=== PATIENT | female | born 1950 | race Caucasian/White ===

== ENCOUNTER → 2017-10-31 14:28 | Outpatient (CLI) | payer MEDICARE, SELFPAY ==
[2017-10-31 15:43] LABS: HEMOLYSIS < 15 (0-50)
[2017-10-31 15:44] LABS: BUN Creatinine Ratio 18.8 (6-22); Blood Urea Nitrogen 15 mg/dL (7-17); Calcium 9.9 mg/dL (8.4-10.2); Carbon Dioxide 32 mmol/L (22-32); Chloride 99 mmol/L (98-107); Estimated Glomerular Filt Rate > 60.0 mL/min (>60); Glucose 111 mg/dL (80-110); Potassium 4.9 mmol/L (3.4-5.1); Sodium 138 mmol/L (137-145)
== END ==
PROVIDERS: PCP Physician Assistant; Visit Provider Physician Assistant
DX: E03.9 Hypothyroidism, unspecified (principal); J30.9 Allergic rhinitis, unspecified; G47.00 Insomnia, unspecified
CPT/HCPCS: 36415; 80048; 84443

== ENCOUNTER → 2018-05-13 11:00 | Outpatient (CLI) | payer MEDICARE, SELFPAY ==
--- NOTE | 2018-05-13 | DI.MG.S_ITS ---
BILATERAL DIGITAL SCREENING MAMMOGRAM 3D/2D WITH CAD: 05/13/2018 CLINICAL: Routine screening. Comparison is made to exams dated: 05/12/2017 mammogram, 04/05/2016 mammogram, and 03/20/2015 mammogram - [facility]. There are scattered fibroglandular elements in both breasts. Current study was also evaluated with a Computer Aided Detection (CAD) system. No significant masses, calcifications, or other findings are seen in either breast. There has been no significant interval change. IMPRESSION: NEGATIVE There is no mammographic evidence of malignancy. A 1 year screening mammogram is recommended. This exam was interpreted at Station ID: [id number]. NOTE: For mammograms, a report in lay terms will be sent to the patient. Approximately 15% of breast malignancies will not be visualized mammographically. In the management of a palpable breast mass, a negative mammogram must not discourage biopsy of a clinically suspicious lesion. Electronically Signed By: Janny bertrand/holly:05/13/2018 15:52:07 letter sent: Normal Exam ACR BI-RADS Category 1: Negative 3341F
== END ==
PROVIDERS: PCP Physician Assistant; Visit Provider Physician Assistant
DX: Z12.31 Encounter for screening mammogram for malignant neoplasm of breast (principal)
CPT/HCPCS: 77063; 77067

== ENCOUNTER → 2018-05-19 10:26 | Outpatient (CLI) | payer MEDICARE, SELFPAY ==
[2018-05-19 10:48] LABS: Add Manual Diff / Slide Review NO; Basophils Absolute Auto 0 /uL (0-100); Basophils Percent Auto 0.8 % (0-2); Eosinophils Absolute Auto 100 /uL (0-450); Eosinophils Percent Auto 3.4 % (2-4); Hematocrit 44.5 % (36-46); Lymphocytes Absolute Auto 1600 /uL (1100-4500); Lymphocytes Percent Auto 37.3 % (25-40); Mean Corpuscular HGB Conc 33.8 % (30-36); Mean Corpuscular Hemoglobin 34.2 PG (26-34); Monocytes Absolute Auto 300 /uL (0-900); Neutrophils Absolute Auto 2100 /uL (1500-7000); Neutrophils Percent Auto 50.5 % (50-75); Platelet Count 287 X10^3/uL (150-400); Red Cell Distribution Width 13.9 % (11.6-14.8); White Blood Cell Count 4.3 X10^3/uL (4.5-11.0)
[2018-05-19 11:00] LABS: Alanine Aminotransferase 31 IU/L (9-52); Albumin 4.5 g/dL (3.5-5.0); Albumin Globulin Ratio 1.5 (1.0-2.8); Alkaline Phosphatase 78 U/L (38-126); Aspartate Aminotransferase 22 IU/L (14-36); BUN Creatinine Ratio 28.6 (6-22); Bilirubin Total 0.8 mg/dL (0.2-1.3); Blood Urea Nitrogen 20 mg/dL (7-17); Calcium 9.3 mg/dL (8.4-10.2); Carbon Dioxide 27 mmol/L (22-32); Chloride 103 mmol/L (98-107); Cholesterol 232 mg/dL (140-199); Estimated Glomerular Filt Rate > 60.0 mL/min (>60); Glucose 100 mg/dL (80-110); HEMOLYSIS < 15 (0-50); Potassium 4.7 mmol/L (3.4-5.1); Sodium 137 mmol/L (137-145); Total Protein 7.5 g/dL (6.3-8.2); Triglycerides 72 mg/dL (35-150)
[2018-05-19 11:08] LABS: HDL Cholesterol 151 mg/dL (40-60); LDL Cholesterol Calculated 67 mg/dL (<100)
[2018-05-19 11:36] LABS: Thyroid Stimulating Hormone 1.89 uIU/mL (0.47-4.68)
== END ==
PROVIDERS: PCP Physician Assistant; Visit Provider Physician Assistant
DX: E03.9 Hypothyroidism, unspecified (principal); D72.819 Decreased white blood cell count, unspecified; G47.00 Insomnia, unspecified; E78.2 Mixed hyperlipidemia
CPT/HCPCS: 36415; 80053; 80061; 84443; 85025

== ENCOUNTER → 2018-06-16 09:43 | Outpatient (CLI) | payer MEDICARE, SELFPAY ==
--- NOTE | 2018-06-16 09:00 | DI.ECHO.S_ITS ---
[place] [facility]---------+ [facility] +---------+ : : [address] : : : : [id number] : : : : Phone: [phone]+ Echocardiogram Report + + :Name: MAT BOSTON V Study Date: 06/16/2018 Height: 66 in : :[facility] Exam Location: IS Weight: 223 lb : : Gender: Female BSA: 2.1 m2 : :: 1950 Age: 67 yrs BP: 135/80 mmHg: :Reason For Study: Post menopausal/ Abnormal EKG : :Ordering Physician: JUDY Bauman : :Lizzie Performed By: Chanell Page : + + Interpretation Summary The left ventricle is normal in size. The ejection fraction is estimated to be 65-70%. There is no echo evidence for significant left ventricular outflow tract obstruction. The right ventricle is normal in size and function. No significant valvular pathology seen. Procedure: A two-dimensional transthoracic echocardiogram with color flow and Doppler was performed. The study quality was technically adequate. There is no prior echocardiogram noted for this patient. A contrast injection of Definity was performed to improve assessment of LV function. The patient was in normal sinus rhythm during the exam. Left Ventricle: The left ventricle is normal in size. Left ventricular wall thickness is mildly increased. Proximal septal thickening is noted. There is no echo evidence for significant left ventricular outflow tract obstruction. The ejection fraction is estimated to be 65-70%. There are no focal wall motion abnormalities. Diastolic parameters suggest probable normal left ventricular diastolic function and normal filling pressures. Right Ventricle: The right ventricle is normal in size and function. Atria: The left atrium is moderately dilated. The right atrium is mildly dilated. There is no Doppler evidence for an interatrial shunt. Mitral Valve: The mitral valve is normal in structure and function. There is trace mitral regurgitation. Aortic Valve: The aortic valve is trileaflet. The aortic valve opens well. There is no aortic valve stenosis. No aortic regurgitation is present. Tricuspid Valve: The tricuspid valve is not well visualized, but is grossly normal. Pulmonary artery pressures cannot be estimated because of the lack of a measurable TR jet velocity. There is trace tricuspid regurgitation. Pulmonic Valve: The pulmonic valve is not well visualized. There is trace pulmonic regurgitation. Great Vessels: The aortic root is normal size. The ascending aorta is at the upper limits of normal in size. The pulmonary is not well visualized. The IVC is of normal diameter and collapses greater than 50% with a sniff. This suggests a low right atrial pressure of 3 mm Hg. Pericardium/ Pleura There is no pericardial effusion. There is an anterior echo-free space consistent with a fat pad. There is no pleural effusion. MMode/2D Measurements & Calculations LVIDd: 4.6 cm LVOT diam: 2.1 cm LVIDs: 2.8 cm Ao root diam: 3.3 cm FS: 38.6 % asc Aorta Diam: 3.5 cm EPSS: 0.17 cm IVSd: 1.3 cm LVPWd: 0.94 cm LV manoz. diameter/BSA (cm/m^2): 2.2 LV sys. diameter/BSA (cm/m^2): 1.3 LA A2 area: 22.6 cm2 RA long axis: 5.7 cm LA A4 area: 25.8 cm2 RA area: 21.6 cm2 LA length (vol): 5.6 cm RA vol: 69.8 ml LA vol: 88.5 ml RA : 33.3 ml/m2 LA vol index: 42.2 ml/m2 IVC diam: 1.5 cm RVD1 (basal): 4.5 cm Doppler Measurements & Calculations Ao V2 max: 154.4 cm/sec LVOT Max Pepe: 111.7 cm/sec Ao V2 mean: 109.9 cm/sec LV V1 max P.0 mmHg Ao max P.5 mmHg LV V1 VTI: 22.3 cm Ao mean P.3 mmHg VIOLA(I,D): 2.7 cm2 Ao V2 VTI: 29.3 cm VIOLA(V,D): 2.6 cm2 sev ratio: 0.76 VIOLA indexed to BSA (cm^2/m^2): 1.3 MV E max pepe: 61.0 cm/sec PA V2 max: 71.6 cm/sec MV A max pepe: 57.9 cm/sec PA V2 mean: 50.4 cm/sec MV E/A: 1.1 PA mean P.1 mmHg Med Peak E' Pepe: 9.1 cm/sec PA Accel Time: 0.11 sec E/E' med: 6.7 Lat Peak E' Pepe: 10.1 cm/sec E/E' lat: 6.0 E/e' average: 6.4 MV dec time: 0.20 sec MV P1/2t: 56.1 msec MV P1/2t max pepe: 60.2 cm/sec SV(LVOT): 78.7 ml MVA(P1/2t): 3.9 cm2 _ Reading Physician:MORALES
== END ==
PROVIDERS: PCP Physician Assistant; Visit Provider Physician Assistant
DX: R94.31 Abnormal electrocardiogram [ECG] [EKG] (principal); M85.88 Other specified disorders of bone density and structure, other site; Z78.0 Asymptomatic menopausal state; E07.9 Disorder of thyroid, unspecified
CPT/HCPCS: 77080; 93306; Q9957

== ENCOUNTER → 2018-12-22 09:34 | Outpatient (CLI) | payer MEDICARE, SELFPAY ==
[2018-12-22 10:08] LABS: Add Manual Diff / Slide Review NO; Basophils Absolute Auto 0 /uL (0-100); Basophils Percent Auto 0.8 % (0-2); Eosinophils Absolute Auto 100 /uL (0-450); Hematocrit 45.1 % (36-46); Hemoglobin 15.2 g/dL (12.0-16.0); Lymphocytes Absolute Auto 1500 /uL (1100-4500); Lymphocytes Percent Auto 37.9 % (25-40); Mean Corpuscular HGB Conc 33.7 % (30-36); Mean Corpuscular Hemoglobin 34.1 PG (26-34); Mean Corpuscular Volume 101.2 fL (80-100); Monocytes Absolute Auto 300 /uL (0-900); Monocytes Percent Auto 8.4 % (3-14); Neutrophils Absolute Auto 1900 /uL (1500-7000); Neutrophils Percent Auto 49.9 % (50-75); Platelet Count 287 X10^3/uL (150-400); Red Blood Cell Count 4.45 X10^6/uL (4.0-5.2); Red Cell Distribution Width 14.4 % (11.6-14.8); White Blood Cell Count 3.9 X10^3/uL (4.5-11.0)
[2018-12-22 10:18] LABS: Alanine Aminotransferase 18 IU/L (9-52); Albumin 4.3 g/dL (3.5-5.0); Albumin Globulin Ratio 1.4 (1.0-2.8); Alkaline Phosphatase 98 U/L (38-126); Aspartate Aminotransferase 24 IU/L (14-36); BUN Creatinine Ratio 18.8 (6-22); Bilirubin Total 0.7 mg/dL (0.2-1.3); Blood Urea Nitrogen 15 mg/dL (7-17); Calcium 9.5 mg/dL (8.4-10.2); Carbon Dioxide 31 mmol/L (22-32); Chloride 100 mmol/L (98-107); Cholesterol 228 mg/dL (140-199); Estimated Glomerular Filt Rate > 60.0 mL/min (>60); Glucose 102 mg/dL (80-110); HEMOLYSIS < 15 (0-50); Potassium 4.8 mmol/L (3.4-5.1); Sodium 137 mmol/L (137-145); Total Protein 7.3 g/dL (6.3-8.2); Triglycerides 64 mg/dL (35-150)
[2018-12-22 10:28] LABS: HDL Cholesterol 148 mg/dL (40-60); LDL Cholesterol Calculated 67 mg/dL (<100)
[2018-12-22 11:18] LABS: Thyroid Stimulating Hormone 1.34 uIU/mL (0.47-4.68)
[2018-12-23 15:35] LABS: HEMOLYSIS < 15 (0-50); Iron 118 ug/dL (37-170)
[2018-12-23 15:46] LABS: Percent Iron Saturation 36 % (15-50); Total Iron Binding Capacity 330 ug/dL (265-497); Transferrin 303 mg/dL (206-381)
[2018-12-23 16:41] LABS: Folate 8.3 ng/mL (2.76-20.0)
== END ==
PROVIDERS: Visit Provider Student in an Organized Health Care Education/Training Program
DX: E03.9 Hypothyroidism, unspecified (principal); E78.2 Mixed hyperlipidemia; D72.819 Decreased white blood cell count, unspecified
CPT/HCPCS: 36415; 80053; 80061; 82746; 83540; 83550; 84443; 85025

== ENCOUNTER → 2019-05-17 11:02 | Outpatient (CLI) | payer MEDICARE, SELFPAY ==
--- NOTE | 2019-05-17 | DI.MG.S_ITS ---
BILATERAL DIGITAL SCREENING MAMMOGRAM 3D/2D WITH CAD: 05/17/2019 CLINICAL: Routine screening. Comparison is made to exams dated: 05/13/2018 mammogram, 05/12/2017 mammogram, and 04/05/2016 mammogram - [facility]. There are scattered fibroglandular elements in both breasts. Current study was also evaluated with a Computer Aided Detection (CAD) system. No significant masses, calcifications, or other findings are seen in either breast. There has been no significant interval change. IMPRESSION: NEGATIVE There is no mammographic evidence of malignancy. A 1 year screening mammogram is recommended. This exam was interpreted at Station ID: [id number]. NOTE: For mammograms, a report in lay terms will be sent to the patient. Approximately 15% of breast malignancies will not be visualized mammographically. In the management of a palpable breast mass, a negative mammogram must not discourage biopsy of a clinically suspicious lesion. Electronically Signed By: Jorge perez/holly:05/17/2019 14:36:08 letter sent: Normal Exam ACR BI-RADS Category 1: Negative 3341F
== END ==
PROVIDERS: PCP Student in an Organized Health Care Education/Training Program; Referring Provider Student in an Organized Health Care Education/Training Program; Visit Provider Student in an Organized Health Care Education/Training Program
DX: Z12.31 Encounter for screening mammogram for malignant neoplasm of breast (principal)
CPT/HCPCS: 77063; 77067

== ENCOUNTER → 2019-11-23 10:43 | Outpatient (CLI) | payer MEDICARE, SELFPAY ==
[2019-11-25 06:43] LABS: COVID19 Sendout Not Detected (Not Detect)
== END ==
PROVIDERS: PCP Student in an Organized Health Care Education/Training Program; Visit Provider Physician Assistant
DX: Z11.59 Encounter for screening for other viral diseases (principal)
CPT/HCPCS: 87635

== ENCOUNTER 2019-11-26 06:32 | Day surgery (SDC) | payer MEDICARE, SELFPAY ==
[2019-11-26] VITALS (8 sets, daily range): BP systolic 125–150; BP diastolic 72–85; PULSE 65–85; RESP 10–16; TEMP 35.7–36.6; O2SAT 95–100; BMI 34.7
[2019-11-26] MEDS: SODIUM CHLORIDE 0.9% 1,000 ML 200 ML IV (07:25)
--- NOTE | 2019-11-26 07:32 | PM.HP.1 ---
History of Present Illness History of Present Illness Date Patient Seen: 11/26/19 Time Patient Seen: 07:32 Chief complaint: SCREENING COLONOSCOPY Narrative: This is a 69 yo woman with hypothyroid, obesity, and personal history of colon polyps. She had a colonoscopy 5 years ago. She denies any new symptoms of melena or hematochezia, unexplained weight loss, or unexplained abdominal pain. ROS: Thirteen system review is otherwise negative other than as mentioned below and in HPI. PE: GENERAL: Well groomed and cooperative. Appears stated age. Answers questions promptly and appropriately. Vital signs noted. HENT: Normocephalic, atraumatic. Hearing intact. EYES: Conjunctiva pink, sclera white, no periorbital swelling. CARDIOVASCULAR: Regular rate. No pedal edema. RESPIRATORY: Non-tachypneic, breathing comfortably on room air. GASTROINTESTINAL: Abdomen soft and non-distended, rounded, obese GENITALURINARY: No flank tenderness. MUSCULOSKELETAL: Equal tone and mass bilaterally. SKIN: Warm, dry, soft, appropriate color for ethnicity. No other lesions, rashes, or wounds. NEURO: Alert and Oriented X 3. No gross sensory deficits, or cognitive issues. PSYCH: Appropriate affect and mood. Patient History Medical History Global amnesia (Acute) Hypothyroidism (Acute) Surgical History H/O vein stripping (Acute) History of bunionectomy (Acute) History of colonoscopy (Acute) S/P trigger finger release (Acute) Family & Social History Social History: household members spouse Tobacco & Substance use: Smoking Status Never smoker alcohol intake frequency a few times a week Substance Use Type does not use Meds Home Medications and Allergies Home Medications Medication Instructions Recorded Confirmed Type aspirin [Aspirin Childrens] 81 mg PO DAILY 11/26/19 11/26/19 History cholecalciferol (vitamin D3) 25 mcg PO DAILY 11/26/19 11/26/19 History [Vitamin D3] levocetirizine [Xyzal] 5 mg PO DAILY 11/26/19 11/26/19 History levothyroxine PO DAILY 11/26/19 History Allergies Allergy/AdvReac Type Severity Reaction Status Date / Time No Known Drug Allergies Allergy Verified 11/26/19 07:01 Exam Vital Signs (past 8 hours): - 11/26/19 07:18 Temperature 96.2 F L Pulse Rate 85 Respiratory Rate 16 Blood Pressure 135/82 Pulse Oximetry 98 Oxygen Delivery Method Room Air Assessment & Plan Assessment and plan (1) Personal history of colonic polyps: Status: Acute Assessment & Plan narrative: Risks and benefits of screening colonoscopy and possible polypectomy were discussed with the patient including risk of bleeding, perforation, need for additional procedures, risks of anesthesia. The patient desires to proceed with the colonoscopy procedure. COVID-19 COVID-19 status: Negative Result date/Date tested (Pos, Neg/Pending): 11/23/19 Time Spent With Patient Time with patient: 15-24 minutes Quality VTE Deep Vein Thrombosis/Pulmonary Embolism Present on Admission: No
--- NOTE | 2019-11-26 07:45 | PM.OP.ENDO ---
Operative Date/Time/Diagnoses Date of procedure: 11/26/19 Time of procedure: 07:45 Pre-op diagnosis: Personal history of colon polyps Post-op diagnosis: same Procedure & Clinicians Study performed: Surveillance colonoscopy Procedural sedation performed by the endoscopist Indications: 69-year-old woman with personal history of colon polyps Surgeon: Rosalina Bailey Procedure Notes SCOAP/Timeout: Performed Procedure in detail: The patient was brought to the room and placed in left lateral decubitus position with all bony prominences padded. A time-out was performed and then the patient was given procedural sedation starting with 4 mg of Versed and 100 mcg of fentanyl. An additional 50 micro g of fentanyl were given during the procedure Vitals were monitored throughout the procedure and remained stable. Once adequately sedated, the procedure was begun. A rectal exam was performed revealing no abnormalities. The colonoscope was then introduced to the rectum and advanced to the cecum in the usual fashion. The colon was quite tortuous and required some maneuvering to get to the cecum. The cecum was identified by the appendiceal orifice, the mucosal tri-fold, and the ileocecal valve. The scope was then retracted while rotating side to side and examining each mucosal fold. No polyps or abnormalities were seen other than the tortuosity of the colon. At the conclusion of the procedure retroflexion was performed and small grade 1-2 internal hemorrhoids without stigmata of bleeding were seen. The scope was then withdrawn from the rectum the procedure was concluded. The patient tolerated the procedure well and was transferred to the PACU in stable condition. Scope withdrawal time: 6 Sedation minutes: 15 Specimen(s): none sent Complications: none Impression: No polyps or lesions. Very tortuous colon. Post-procedure Recommendations: Colonscopy in 10 years (The patient has had a clean colonoscopy 5 years ago and again today. There is no indication to repeat a colonoscopy until 10 years unless she develops concerning symptoms.) Follow up: as needed Disposition: PACU
[2019-11-26] MEDS: MIDAZOLAM 5 MG/5 ML VIAL IV (08:09)
[2019-11-26] MEDS: fentaNYL 250 MCG/5 ML INJ IV (08:09)
== END 2019-11-26 09:10 | disposition home or self-care (01) ==
PROVIDERS: PCP Student in an Organized Health Care Education/Training Program; Referring Provider Surgery; Visit Provider Surgery
PROC: 0DJD8ZZ Inspection of Lower Intestinal Tract, Via Natural or Artificial Opening Endoscopic (ICD-10-PCS; CPT 45378; principal; 2019-11-26 07:45)
DX: Z12.11 Encounter for screening for malignant neoplasm of colon (principal); Z86.010 Personal history of colon polyps; E03.9 Hypothyroidism, unspecified; K64.0 First degree hemorrhoids
CPT/HCPCS: G0105; 99152; J2250; J3010

== ENCOUNTER → 2020-02-18 10:24 | Outpatient (CLI) | payer MEDICARE, SELFPAY ==
[2020-02-18 11:50] LABS: Add Manual Diff / Slide Review NO; Basophils Absolute Auto 0 /uL (0-100); Basophils Percent Auto 0.8 % (0-2); Eosinophils Absolute Auto 200 /uL (0-450); Eosinophils Percent Auto 4.8 % (2-4); Hematocrit 43.5 % (36-46); Hemoglobin 14.6 g/dL (12.0-16.0); Lymphocytes Absolute Auto 1400 /uL (1100-4500); Lymphocytes Percent Auto 37.7 % (25-40); Mean Corpuscular HGB Conc 33.6 % (30-36); Mean Corpuscular Hemoglobin 34.3 PG (26-34); Mean Corpuscular Volume 101.9 fL (80-100); Monocytes Absolute Auto 300 /uL (0-900); Monocytes Percent Auto 8.2 % (3-14); Neutrophils Absolute Auto 1800 /uL (1500-7000); Neutrophils Percent Auto 48.5 % (50-75); Platelet Count 266 X10^3/uL (150-400); Red Blood Cell Count 4.27 X10^6/uL (4.0-5.2); Red Cell Distribution Width 14.2 % (11.6-14.8); White Blood Cell Count 3.7 X10^3/uL (4.5-11.0)
[2020-02-18 12:00] LABS: Alanine Aminotransferase 21 IU/L (<35); Albumin 4.2 g/dL (3.5-5.0); Albumin Globulin Ratio 1.5 (1.0-2.8); Alkaline Phosphatase 74 U/L (38-126); Aspartate Aminotransferase 25 IU/L (14-36); BUN Creatinine Ratio 25.4 (6-22); Bilirubin Total 0.7 mg/dL (0.2-1.3); Blood Urea Nitrogen 18 mg/dL (7-17); Calcium 9.1 mg/dL (8.4-10.2); Carbon Dioxide 31 mmol/L (22-32); Chloride 102 mmol/L (98-107); Cholesterol 214 mg/dL (140-199); Estimated Glomerular Filt Rate > 60.0 mL/min (>60); Globulin 2.8 g/dL (1.7-4.1); Glucose 99 mg/dL (80-110); HEMOLYSIS < 15 (0-50); Potassium 4.4 mmol/L (3.4-5.1); Sodium 134 mmol/L (137-145); Triglycerides 47 mg/dL (35-150)
[2020-02-18 12:08] LABS: HDL Cholesterol 138 mg/dL (40-60); LDL Cholesterol Calculated 67 mg/dL (<100)
[2020-02-18 12:28] LABS: Thyroid Stimulating Hormone 1.12 uIU/mL (0.47-4.68)
[2020-02-18 16:50] LABS: Reticulocyte Count, Percent 1.1 % (1.06-2.63)
[2020-02-18 18:00] LABS: Folate 8.8 ng/mL (2.76-20.0); Vitamin B12 289 pg/mL (239-931)
== END ==
PROVIDERS: PCP Student in an Organized Health Care Education/Training Program; Referring Provider Student in an Organized Health Care Education/Training Program; Visit Provider Student in an Organized Health Care Education/Training Program
DX: Z00.00 Encounter for general adult medical examination without abnormal findings (principal); E03.9 Hypothyroidism, unspecified; E78.2 Mixed hyperlipidemia
CPT/HCPCS: 36415; 80053; 80061; 82607; 82746; 84443; 85025; 85045

== ENCOUNTER → 2020-04-21 10:45 | Outpatient (CLI) | payer MEDICARE, SELFPAY ==
--- NOTE | 2020-04-21 10:46 | DI.US.S_ITS ---
ULTRASOUND OF RIGHT AXILLA: 04/21/2020 CLINICAL: Palpable right axilla lump. Comparison is made to exams dated: 05/17/2019 mammogram, 05/13/2018 mammogram, and 05/12/2017 mammogram - [facility]. Color flow and real-time ultrasound of the right axilla were performed on the areas of interest. There is a 1.7 cm x 1.3 cm x 1.7 cm oval lymph node in the right axillary tail. This oval lymph node is of mixed echogenicity with a fatty hilum which appears enlarged. The cortex is normal in thickness, measuring up to 0.2 cm. This correlates with the area of palpable abnormality. Color flow imaging demonstrates that there is no increase in vascularity. IMPRESSION: PROBABLY BENIGN The 1.7 cm x 1.3 cm x 1.7 cm oval lymph node is probably benign and likely reactive. A follow-up ultrasound in 3 months is recommended to demonstrate stability. A follow-up ultrasound in 3 months is recommended. Patient is scheduled for screening mammography in approximately 1 month. This exam was interpreted at Station ID: [id number]. Electronically Signed By: Jorge perez/:04/21/2020 11:55:24 letter sent: Followup Recommended Ultrasound BI-RADS: 3 Probably benign
== END ==
PROVIDERS: PCP Student in an Organized Health Care Education/Training Program; Referring Provider Internal Medicine Hematology & Oncology; Visit Provider Internal Medicine Hematology & Oncology
DX: R59.9 Enlarged lymph nodes, unspecified (principal); D72.819 Decreased white blood cell count, unspecified; M79.89 Other specified soft tissue disorders
CPT/HCPCS: 76882

== ENCOUNTER → 2020-05-23 16:30 | Outpatient (CLI) | payer MEDICARE, SELFPAY ==
--- NOTE | 2020-05-23 | DI.MG.S_ITS ---
BILATERAL DIGITAL SCREENING MAMMOGRAM 3D/2D WITH CAD: 05/23/2020 CLINICAL: Routine screening. Comparison is made to exams dated: 05/17/2019 mammogram, 05/13/2018 mammogram, 05/12/2017 mammogram, 04/05/2016 mammogram, and 03/20/2015 mammogram - [facility]. There are scattered fibroglandular elements in both breasts. Current study was also evaluated with a Computer Aided Detection (CAD) system. No significant masses, calcifications, or other findings are seen in either breast. There has been no significant interval change. IMPRESSION: NEGATIVE There is no mammographic evidence of malignancy. A 1 year screening mammogram is recommended. Future imaging is recommended as follows: 07/20/2020 follow-up right ultrasound. This exam was interpreted at Station ID: [id number]. NOTE: For mammograms, a report in lay terms will be sent to the patient. Approximately 15% of breast malignancies will not be visualized mammographically. In the management of a palpable breast mass, a negative mammogram must not discourage biopsy of a clinically suspicious lesion. Electronically Signed By: Wilver gan/holly:05/23/2020 18:03:16 copy to: LUC GARCIA letter sent: Normal Exam ACR BI-RADS Category 1: Negative 3341F
== END ==
PROVIDERS: PCP Student in an Organized Health Care Education/Training Program; Referring Provider Student in an Organized Health Care Education/Training Program; Visit Provider Student in an Organized Health Care Education/Training Program
DX: Z12.31 Encounter for screening mammogram for malignant neoplasm of breast (principal)
CPT/HCPCS: 77063; 77067

== ENCOUNTER → 2020-08-11 14:44 | Outpatient (CLI) | payer MEDICARE, SELFPAY ==
--- NOTE | 2020-08-11 14:45 | DI.US.S_ITS ---
ULTRASOUND OF RIGHT BREAST AND AXILLA: 08/11/2020 CLINICAL: 3 month follow up axilla. ultrasound only. Comparison is made to exams dated: 05/23/2020 mammogram, 04/21/2020 ultrasound, 05/17/2019 mammogram, 05/13/2018 mammogram, and 05/12/2017 mammogram - [facility]. Color flow and real-time ultrasound of the right breast axilla were performed. Tinsley scale images of the real-time examination were reviewed. There is a benign 1.7 cm x 1.3 cm x 1.7 cm oval lymph node in the right axillary tail. This oval lymph node is of mixed echogenicity with fatty hilum. This correlates as palpated. Color flow imaging demonstrates that there is no increase in vascularity. No significant abnormalities were seen sonographically in the right axilla. IMPRESSION: BENIGN There is no sonographic evidence of malignancy. The 1.7 cm x 1.3 cm x 1.7 cm oval lymph node is unchanged and has no cortical thickening with preservation of the fatty hilum, suggesting benignity. Return to annual screening schedule is recommended. This exam was interpreted at Station ID: [id number]. Electronically Signed By: Erich Tim M.D. jr/:08/11/2020 15:39:47 copy to: LUC GARCIA letter sent: Normal Exam Ultrasound BI-RADS: 2 Benign
== END ==
PROVIDERS: PCP Student in an Organized Health Care Education/Training Program; Referring Provider Internal Medicine Hematology & Oncology; Visit Provider Internal Medicine Hematology & Oncology
DX: M79.89 Other specified soft tissue disorders (principal); R92.8 Other abnormal and inconclusive findings on diagnostic imaging of breast
CPT/HCPCS: 76882

== ENCOUNTER → 2021-01-08 09:42 | Outpatient (CLI) | payer MEDICARE, SELFPAY ==
[2021-01-08 10:37] LABS: Hemoglobin 14.7 g/dL (12.0-16.0); Mean Corpuscular HGB Conc 33.3 % (30-36); Mean Corpuscular Hemoglobin 34.2 PG (26-34); Mean Corpuscular Volume 102.7 fL (80-100); Platelet Count 267 X10^3/uL (150-400); Red Blood Cell Count 4.29 X10^6/uL (4.0-5.2); Red Cell Distribution Width 14.5 % (11.6-14.8)
[2021-01-08 10:48] LABS: Alanine Aminotransferase 20 IU/L (<35); Albumin 4.3 g/dL (3.5-5.0); Albumin Globulin Ratio 1.6 (1.0-2.8); Alkaline Phosphatase 82 U/L (38-126); Aspartate Aminotransferase 23 IU/L (14-36); BUN Creatinine Ratio 26.3 (6-22); Bilirubin Total 0.6 mg/dL (0.2-1.3); Blood Urea Nitrogen 21 mg/dL (7-17); Calcium 9.2 mg/dL (8.4-10.2); Carbon Dioxide 31 mmol/L (22-32); Chloride 103 mmol/L (98-107); Cholesterol 228 mg/dL (140-199); Estimated Glomerular Filt Rate > 60.0 mL/min (>60); Globulin 2.7 g/dL (1.7-4.1); Glucose 99 mg/dL (80-110); HEMOLYSIS < 15 (0-50); Potassium 4.7 mmol/L (3.4-5.1); Sodium 136 mmol/L (137-145); Triglycerides 60 mg/dL (35-150)
[2021-01-08 11:10] LABS: HDL Cholesterol 144 mg/dL (40-60); LDL Cholesterol Calculated 72 mg/dL (<100)
[2021-01-08 13:22] LABS: Thyroid Stimulating Hormone 1.53 uIU/mL (0.47-4.68)
== END ==
PROVIDERS: PCP Student in an Organized Health Care Education/Training Program; Referring Provider Student in an Organized Health Care Education/Training Program; Visit Provider Student in an Organized Health Care Education/Training Program
DX: E78.2 Mixed hyperlipidemia (principal); I10 Essential (primary) hypertension; E03.9 Hypothyroidism, unspecified
CPT/HCPCS: 36415; 80053; 80061; 84443; 85027

== ENCOUNTER → 2021-03-12 10:07 | Outpatient (CLI) | payer MEDICARE, SELFPAY ==
[2021-03-12 13:39] LABS: COVID19 -Nasal RAPID Negative (Negative)
== END ==
PROVIDERS: PCP Student in an Organized Health Care Education/Training Program; Visit Provider Physician Assistant
DX: Z20.822 Contact with and (suspected) exposure to COVID-19 (principal)
CPT/HCPCS: 87635

== ENCOUNTER → 2021-05-25 08:27 | Outpatient (CLI) | payer MEDICARE, SELFPAY ==
--- NOTE | 2021-05-25 | DI.MG.S_ITS ---
BILATERAL DIGITAL SCREENING MAMMOGRAM 3D/2D WITH CAD: 05/25/2021 CLINICAL: Routine screening. Comparison is made to exams dated: 05/23/2020 mammogram, 05/17/2019 mammogram, and 05/13/2018 mammogram - [facility]. There are scattered fibroglandular elements in both breasts. Current study was also evaluated with a Computer Aided Detection (CAD) system. No significant masses, calcifications, or other findings are seen in either breast. There has been no significant interval change. IMPRESSION: NEGATIVE There is no mammographic evidence of malignancy. A 1 year screening mammogram is recommended. This exam was interpreted at Station ID: [id number]. NOTE: For mammograms, a report in lay terms will be sent to the patient. Approximately 15% of breast malignancies will not be visualized mammographically. In the management of a palpable breast mass, a negative mammogram must not discourage biopsy of a clinically suspicious lesion. Electronically Signed By: Esther eddy/holly:05/25/2021 10:18:23 copy to: LUC GARCIA letter sent: Normal Exam ACR BI-RADS Category 1: Negative 3341F
== END ==
PROVIDERS: PCP Student in an Organized Health Care Education/Training Program; Referring Provider Student in an Organized Health Care Education/Training Program; Visit Provider Student in an Organized Health Care Education/Training Program
DX: Z12.31 Encounter for screening mammogram for malignant neoplasm of breast (principal)
CPT/HCPCS: 77063; 77067

== ENCOUNTER → 2021-11-19 12:28 | Outpatient (CLI) | payer MEDICARE, SELFPAY ==
--- NOTE | 2021-11-19 | DI.RAD.S_ITS ---
PROCEDURE: XR KNEE LT 3V INDICATIONS: LEFT KNEE PAIN TECHNIQUE: 3 views of the knee were acquired. COMPARISON: None. FINDINGS: Bones: No acute fracture or dislocation. There is moderate femorotibial compartment narrowing, small intercondylar osteophytes, and patellofemoral osteophytes. Soft tissues: No joint effusion. No suspicious soft tissue calcifications. IMPRESSION: Mild osteoarthritis. Dictated by: Janny Mojica M.D. on 11/19/2021 at 14:12 Approved by: Janny Mojica M.D. on 11/19/2021 at 14:12
== END ==
PROVIDERS: PCP Student in an Organized Health Care Education/Training Program; Referring Provider Student in an Organized Health Care Education/Training Program; Visit Provider Student in an Organized Health Care Education/Training Program
DX: M25.562 Pain in left knee (principal); M25.662 Stiffness of left knee, not elsewhere classified; M17.12 Unilateral primary osteoarthritis, left knee
CPT/HCPCS: 73562

== ENCOUNTER → 2022-03-30 08:57 | Outpatient (CLI) | payer MEDICARE, SELFPAY ==
[2022-03-30 09:54] LABS: Influenza A - CEPHEID Flu A NEGATIVE (NEGATIVE); Influenza B - CEPHEID Flu B NEGATIVE (NEGATIVE); Respiratory Syncytial Virus Negative (Negative)
[2022-03-30 09:56] LABS: COVID-19 CEPHEID 4-PLEX PCR Negative (Negative)
== END ==
PROVIDERS: PCP Student in an Organized Health Care Education/Training Program; Visit Provider Registered Nurse
DX: J06.9 Acute upper respiratory infection, unspecified (principal); Z20.822 Contact with and (suspected) exposure to COVID-19
CPT/HCPCS: 0241U

== ENCOUNTER → 2022-06-07 12:14 | Outpatient (CLI) | payer MEDICARE, SELFPAY ==
--- NOTE | 2022-06-07 | DI.MG.S_ITS ---
BILATERAL DIGITAL SCREENING MAMMOGRAM 3D/2D WITH CAD: 06/07/2022 CLINICAL: Routine screening. Comparison is made to exams dated: 05/25/2021 mammogram, 05/23/2020 mammogram, and 05/17/2019 mammogram - [facility]. There are scattered areas of fibroglandular density in both breasts (category b / 25%-50% glandular tissue). Current study was also evaluated with a Computer Aided Detection (CAD) system. There is a new oval focal asymmetry in the left breast at 8 o'clock posterior depth. There is architectural distortion associated with the focal asymmetry. No other significant masses, calcifications, or other findings are seen in either breast. IMPRESSION: INCOMPLETE: NEEDS ADDITIONAL IMAGING EVALUATION The new oval focal asymmetry in the left breast is indeterminate. Additional views with possible ultrasound are recommended. Based on the Tyrer Cuzick model (a risk assessment model) the patient's lifetime risk is 6.1% and her 10 year risk is 3.6%. According to the ACR, ACS, and NCCN guidelines, an annual breast MRI exam along with mammogram is recommended if the patient's lifetime risk is 20% or greater. This exam was interpreted at Station ID: [id number]. NOTE: For mammograms, a report in lay terms will be sent to the patient. Approximately 15% of breast malignancies will not be visualized mammographically. In the management of a palpable breast mass, a negative mammogram must not discourage biopsy of a clinically suspicious lesion. Electronically Signed By: Rex lisa/holly:06/07/2022 17:07:26 copy to: LUC GARCIA letter sent: Additional Imaging Needed ACR BI-RADS Category 0: Incomplete 3340F
== END ==
PROVIDERS: PCP Student in an Organized Health Care Education/Training Program; Referring Provider Student in an Organized Health Care Education/Training Program; Visit Provider Student in an Organized Health Care Education/Training Program
DX: Z12.31 Encounter for screening mammogram for malignant neoplasm of breast (principal)
CPT/HCPCS: 77063; 77067

== ENCOUNTER → 2022-07-01 08:47 | Outpatient (CLI) | payer MEDICARE, SELFPAY ==
--- NOTE | 2022-07-01 | DI.US.S_ITS ---
LIMITED ULTRASOUND OF LEFT BREAST AND AXILLA: 07/01/2022 CLINICAL: Patient returns today to evaluate 2 focal asymmetries in the left breast. Comparison is made to exams dated: 07/01/2022 mammogram, 06/07/2022 mammogram, 05/25/2021 mammogram, 05/23/2020 mammogram, and 05/17/2019 mammogram - [facility]. Color flow ultrasound of the left breast axilla was performed on the areas of interest. Tinsley scale images of the real-time examination were reviewed. There is a 0.4 cm x 0.3 cm x 0.4 cm mass in the left breast at 2 o'clock middle depth. This mass is hypoechoic with posterior acoustic shadowing. This correlates with mammography findings. There also is a 0.7 cm x 0.6 cm x 0.7 cm oval mass in the left breast at 8 o'clock posterior depth. This oval mass is hypoechoic. This correlates with mammography findings. The left axilla was interogated and normal appearing lymph nodes are visualized. IMPRESSION: SUSPICIOUS OF MALIGNANCY No left axillary adenopathy. The 0.4 cm x 0.3 cm x 0.4 cm mass in the left breast at 2 o'clock middle depth is at a moderate suspicion for malignancy. An ultrasound guided biopsy is recommended. The 0.7 cm x 0.6 cm x 0.7 cm oval mass in the left breast at 8 o'clock posterior depth is at a low suspicion for malignancy. An ultrasound guided biopsy is recommended. This exam was interpreted at Station ID: [id number]. SUMMARY: This was discussed with the patient by the radiologist Dr. Rayo at the time of the exam. Electronically Signed By: Janny Mojica M.D. lk/:07/01/2022 10:37:58 copy to: LUC GARCIA letter sent: Biopsy Required Ultrasound BI-RADS: 4b Moderate suspicion of malignancy
--- NOTE | 2022-07-01 | DI.MG.S_ITS ---
UNILATERAL LEFT DIGITAL DIAGNOSTIC MAMMOGRAM 3D/2D WITH ADDITIONAL VIEWS: 07/01/2022 CLINICAL: Additional evaluation requested from prior study. Comparison is made to exams dated: 06/07/2022 mammogram, 05/25/2021 mammogram, and 05/23/2020 mammogram - [facility]. There are scattered areas of fibroglandular density in the left breast (category b / 25%-50% glandular tissue). There is a focal asymmetry in the left breast at 2 o'clock middle depth. There is architectural distortion associated with the focal asymmetry. There also is a focal asymmetry in the left breast at 8 o'clock middle depth. This is seen in additional views. There is architectural distortion associated with the focal asymmetry. No other significant masses or calcifications are seen in the breast. IMPRESSION: INCOMPLETE: NEEDS ADDITIONAL IMAGING EVALUATION The focal asymmetry in the left breast at 2 o'clock middle depth is indeterminate. The focal asymmetry in the left breast at 8 o'clock middle depth is indeterminate. A targeted ultrasound of the left breast is recommended and will be performed immediately following this exam. Based on the Tyrer Cuzick model (a risk assessment model) the patient's lifetime risk is 6.1% and her 10 year risk is 3.6%. According to the ACR, ACS, and NCCN guidelines, an annual breast MRI exam along with mammogram is recommended if the patient's lifetime risk is 20% or greater. This exam was interpreted at Station ID: [id number]. NOTE: For mammograms, a report in lay terms will be sent to the patient. Approximately 15% of breast malignancies will not be visualized mammographically. In the management of a palpable breast mass, a negative mammogram must not discourage biopsy of a clinically suspicious lesion. Electronically Signed By: Janny Mojica M.D. lk/:07/01/2022 10:24:05 copy to: LUC GARCIA ACR BI-RADS Category 0: Incomplete 3340F
== END ==
PROVIDERS: PCP Student in an Organized Health Care Education/Training Program; Referring Provider Student in an Organized Health Care Education/Training Program; Visit Provider Student in an Organized Health Care Education/Training Program
DX: R92.8 Other abnormal and inconclusive findings on diagnostic imaging of breast (principal); N63.21 Unspecified lump in the left breast, upper outer quadrant; N63.24 Unspecified lump in the left breast, lower inner quadrant
CPT/HCPCS: 76642; 77065; G0279

== ENCOUNTER → 2022-07-12 07:26 | Outpatient (CLI) | payer MEDICARE, SELFPAY ==
--- NOTE | 2022-07-02 07:59 | DI.US.S_ITS ---
Patient Name: MAT BOSTON date: 1950 Sex: F Attending Physician: Kana Indications: Date: 07/18/2022 08:38 At the request of: LALO SINGH Procedure: US bx breast perc w vac device MULTIPLE ULTRASOUND GUIDED BIOPSIES LEFT BREAST WITH MARKING DEVICES INSERTED AND POST DIGITAL MAMMOGRAPHIC IMAGIN07/12/2022 CLINICAL: Left breast masses 2:00 3CMFN and 8:00 5CMFN. PATIENT CONSENT: Risks (minor bleeding, infection, vasovagal reaction and repeat procedure), benefits and alternatives were explained to the patient and written informed consent was obtained. Correlation is made to exams dated: 07/12/2022 mammogram, 07/01/2022 ultrasound, 07/01/2022 mammogram, 06/07/2022 mammogram, 05/25/2021 mammogram, and 05/23/2020 mammogram - [facility]. An ultrasound guided biopsy using real-time ultrasound was performed for the lobulated mass located in the left breast at 3 o'clock posterior depth. The skin was prepped in the usual manner. Local anesthetic was administered to the access site. The abnormality was approached from the lateral aspect. A biopsy needle was placed adjacent to the abnormality under ultrasound guidance. Once the needle was documented to be in the correct location, a specimen was obtained using a BARD biopsy device. A titanium clip was inserted into the biopsy cavity. Post procedure mammographic imaging was obtained. The specimen was sent to the laboratory for pathological analysis. A scenod biopsy at the 9 position was also performed and a titianum clip placed IMPRESSION: ULTRASOUND GUIDED BIOPSY MALIGNANT Ultrasound guided biopsy of the mass in the left breast at 3 o'clock posterior depth was successful. Pathology indicates malignant invasive ductal carcinoma (ID). Pathology results are concordant with imaging findings. A surgical/oncologic consultation is recommended. A second biopsy was performed at the 8 o'clock position and a titianum clip was placed. Continued Report - Page 2 of 2 Patient Name: MAT BOSTON date: 1950 Sex: F Attending Physician: Kana Indications: Date: 07/18/2022 08:38 At the request of: LALO SINGH Procedure: US bx breast perc w vac device Ultrasound guided biopsy of the 0.7 cm x 0.7 cm x 0.6 cm mass in the left breast at 8 o'clock posterior depth 5 cm from the nipple was performed. Pathology indicates malignant invasive ductal carcinoma (ID). Pathology results are concordant with imaging findings. A surgical/oncologic consultation is recommended. This exam was interpreted at Station ID: [id number]. Kuldeep Martel M.D. ,at/:07/18/2022 08:38:59 Entry: - 07/18/2022 10:08:28 copy to: LUC GARCIA
--- NOTE | 2022-07-12 | PATH_ITS ---
[facility] Accession Number: [id number] No. of containers..02 Tissue . 01 Material submitted: . PART A: breast - LEFT BREAST 2:00 3 CN FN MASS PART B: breast - LEFT BREAST 8:00 5 CMFN . 01 Diagnosis: A. Left Breast, 2 o'clock, 3 cm from Nipple, Image-Guided Core Biopsy: Invasive ductal carcinoma, well differentiated. - Denzel score is 5 out of 9 possible (histologic=2, nuclear=2, mitotic index=1). - In situ carcinoma: Not identified. - Lymphovascular invasion: Not identified. - Calcifications: Not identified. - Greatest linear extent of invasive carcinoma: 0.3 cm, as measured from the glass slide. - Predictive markers: Estrogen and progesterone receptors positive and HER2 negative for overexpression by immunohistochemistry (please see comment for parameters). . B. Left Breast, 8 o'clock, 5 cm from Nipple, Image-Guided Core Biopsy: Invasive ductal carcinoma, well differentiated. - Denzel score is 4 out 9 possible (histologic=1, nuclear=2, mitotic index=1). - In situ carcinoma: Not identified. - Lymphovascular invasion: Not identified. - Calcifications: Present. - Greatest linear extent of invasive carcinoma: 0.7 cm, as measured from the glass slide. - Predictive markers: Estrogen and progesterone receptors positive and HER2 negative for overexpression by immunohistochemistry (please see comment for full parameters). [facility] 07/16/2022 1504 Local . 01 Comment: Predictive marker immunohistochemical studies are performed on blocks A1 and B1 with the invasive carcinoma showing the following results: . Block A1: Estrogen receptor (SP1): Positive (100%, strong intensity). Progesterone receptor (1E2): Positive (20%, weak intensity). Her2 (4B5): Negative for overexpression (0). . Block B1: Estrogen receptor (SP1): Positive (100%, strong intensity). Progesterone receptor (1E2): Positive (70%, strong intensity). Her2 (4B5): Negative for overexpression (0). . Immunostains to e-cadherin and beta-catenin are performed on block A1, and show uniform to variable expression on the invasive carcinoma cells, supporting the interpretation of ductal as opposed to lobular carcinoma. . Internal controls for ER and [place] are positive. Cold ischemic time not provided. The scoring criteria for breast biomarkers by immunohistochemistry is based on the ASCO/CAP guidelines (Nakul AC et al, J Clin Oncol: 2017Oct 21;36(20):3497-1540 and Qing ME et al, Arch Pathol Lab Med: 2009;134(6):907-22). Deparaffinized sections of formalin fixed tissue (along with appropriate positive controls) are incubated with the above antibody(s). Using the automated Bode stainer, tissue is incubated with the designated antibody which is then localized by a non-biotin, dual polymer detection system. The external controls are reviewed for appropriate reactivity and found to be adequate. Results on the target cell population are indicated above. These tests have not been validated on decalcified tissue. This test was developed and its performance characteristics determined by [employer]. It has not been cleared or approved by the U.S. Food and Drug Administration. The FDA has determined that such clearance or approval is not necessary. This test is used for clinical purposes. It should not be regarded as investigational or for research. . The results of this case are verbally provided by Dr. Mcrae to Automotive Hardware Engineer Shawn on 07/16/2022 at 2:30 p.m. . 01 Electronically signed: . Lena Mcrae MD, Pathologist NPI- [id number] . 01 Gross description: . A. Received in formalin, labeled with the patient's name, , and LT breast 2 o'clock 3 cm FN, and consists of three yellow to parmar needle core biopsies ranging from 0.6 cm to 0.9 cm in length by 0.1 cm in diameter. The specimen is inked blue and submitted entirely in cassette A1. B. Received in formalin, labeled with the patient's name, , and LT breast 8 o'clock 5 cm FN, and consists of four yellow to parmar needle core biopsies ranging in length from 0.3 cm to 1.2 cm and averaging 0.1 cm in diameter. The specimen is inked green and submitted entirely in cassette B1. . Both specimens were removed on 07/12/2022 at approximately 09:40. Time in formalin not provided. Cold ischemic time cannot be calculated. Total fixation time is approximately 53 hours. ([id number]) /FRR 07/13/2022 1212 Local . 01 Pathologist provided ICD-10: C50.912 . 01 CPT . 419204, 051785, 954567, 476054, 375638, 434617, 300837, 222064, [id number], [id number] Specimen Comment: A courtesy copy of this report has been sent to [phone] Performed at: 01 [facility] [address] [place] [address], [place], [place] [id number] MD Jorge Bauer MD Phone: [phone]
--- NOTE | 2022-07-12 09:25 | DI.MG.S_ITS ---
At the request of: LALO SINGH Procedure: MM diagnostic mammo [id number] UNILATERAL LEFT DIGITAL DIAGNOSTIC MAMMOGRAM 3D/2D: 07/12/2022 CLINICAL: Left post clip. Comparison is made to exams dated: 07/01/2022 ultrasound, 07/01/2022 mammogram, 06/07/2022 mammogram, and 05/25/2021 mammogram - [facility]. There are scattered areas of fibroglandular density in the left breast (category b / 25%-50% glandular tissue). There is a marker clip in the appropriate position in the left breast central to the nipple middle depth. This marker clip placement is at the biopsy site. IMPRESSION: POST PROCEDURE MAMMOGRAM FOR MARKER PLACEMENT There was a successful marker clip placement in the left breast central to the nipple middle depth. Based on the Tyrer Cuzick model (a risk assessment model) the patient?s lifetime risk is 6.1% and her 10 year risk is 3.6%. According to the ACR, ACS, and NCCN guidelines, an annual breast MRI exam along with mammogram is recommended if the patient?s lifetime risk is 20% or greater. This exam was interpreted at Station ID: [id number]. NOTE: For mammograms, a report in lay terms will be sent to the patient. Approximately 15% of breast malignancies will not be visualized mammographically. In the management of a palpable breast mass, a negative mammogram must not discourage biopsy of a clinically suspicious lesion. Electronically Signed By: Kuldeep Nunez M.D. mf/:07/12/2022 12:43:15 copy to: LUC GARCIA ACR BI-RADS Category Post-procedure mammogram for marker placement
== END ==
PROVIDERS: PCP Student in an Organized Health Care Education/Training Program; Referring Provider Student in an Organized Health Care Education/Training Program; Visit Provider Student in an Organized Health Care Education/Training Program
DX: C50.412 Malignant neoplasm of upper-outer quadrant of left female breast (principal); C50.312 Malignant neoplasm of lower-inner quadrant of left female breast; Z17.0 Estrogen receptor positive status [ER+]
CPT/HCPCS: 19083; 19084; 77065

== ENCOUNTER → 2023-07-19 10:18 | Outpatient (CLI) | payer MEDICARE, SELFPAY ==
[2023-07-19 11:23] LABS: Influenza A - CEPHEID Flu A NEGATIVE (NEGATIVE); Influenza B - CEPHEID Flu B NEGATIVE (NEGATIVE); Respiratory Syncytial Virus Negative (Negative)
[2023-07-19 11:26] LABS: COVID-19 CEPHEID 4-PLEX PCR Negative (Negative)
== END ==
PROVIDERS: PCP Student in an Organized Health Care Education/Training Program; Visit Provider Physician Assistant Surgical
DX: R05.9 Cough, unspecified (principal)
CPT/HCPCS: 0241U; 87070

== ENCOUNTER → 2023-09-12 13:53 | Outpatient (CLI) | payer MEDICARE, SELFPAY ==
[2023-09-12 14:43] LABS: Influenza A - CEPHEID Flu A NEGATIVE (NEGATIVE); Influenza B - CEPHEID Flu B NEGATIVE (NEGATIVE); Respiratory Syncytial Virus Negative (Negative)
[2023-09-12 14:49] LABS: COVID-19 CEPHEID 4-PLEX PCR Negative (Negative)
== END ==
PROVIDERS: PCP Student in an Organized Health Care Education/Training Program; Visit Provider Physician Assistant Surgical
DX: R05.9 Cough, unspecified (principal)
CPT/HCPCS: 0241U

== ENCOUNTER → 2023-10-24 11:18 | Outpatient (CLI) | payer MEDICARE, SELFPAY ==
--- NOTE | 2023-10-24 11:20 | DI.US.S_ITS ---
PROCEDURE: US SOFT TISSUE HEAD AND NECK INDICATIONS: SMALL NODULE NEAR COLLARBONE TECHNIQUE: Real-time scanning was performed of the neck region of interest, with image documentation. COMPARISON: None. FINDINGS: No sonographic abnormality in the left supra clavicular or infraclavicular region. Of note, patient is unable to palpate the queried abnormality. IMPRESSION: No sonographic abnormality in the left supraclavicular or infraclavicular region. Dictated by: Dheeraj Alvarez M.D. on 10/24/2023 at 15:41 Approved by: Dheeraj Alvarez M.D. on 10/24/2023 at 15:45
== END ==
LOC: US 11:19
PROVIDERS: PCP Student in an Organized Health Care Education/Training Program; Referring Provider Physician Assistant Medical; Visit Provider Physician Assistant Medical
DX: C50.912 Malignant neoplasm of unspecified site of left female breast (principal)
CPT/HCPCS: 76536

== ENCOUNTER → 2024-06-04 15:10 | Outpatient (CLI) | payer MEDICARE, SELFPAY ==
--- NOTE | 2024-06-04 15:13 | DI.RAD.S_ITS ---
PROCEDURE: XR THORACIC SPINE 3V INDICATIONS: THORACIC SPINE PAIN TECHNIQUE: 3 views of the thoracic spine were acquired. COMPARISON: None. FINDINGS: Bones: No fractures or dislocations. No suspicious bony lesions. 12 pairs of ribs are noted, and appear intact where visualized. Soft tissues: No paravertebral stripe thickening. IMPRESSION: No acute bony abnormality. If symptoms persist with conservative management, consider cross-sectional imaging such as CT or MRI. Approved by: Dbe Vences M.D.,Ph.D. on 06/05/2024 at 0:11
== END ==
PROVIDERS: PCP Student in an Organized Health Care Education/Training Program; Referring Provider Nurse Practitioner Family; Visit Provider Nurse Practitioner Family
DX: M54.6 Pain in thoracic spine (principal)
CPT/HCPCS: 72072